=== PATIENT | female | born 1995 | race Two or more races ===

== ENCOUNTER 2024-10-04 22:16 | Emergency (ER) | payer OTHER ==
[~2024-10-04] VITALS: Ht 170.2 cm; Wt 90.7 kg
[2024-10-05 00:09] LABS: BASO % 0.5 % (0.1-1.2); EOS # 0.32 (0.04-0.54); EOS % 2.3 % (0.7-7.0); LYMPH # 2.28 (1.18-3.74); LYMPH % 16.6 % (19.3-53.1); MEAN PLATELET VOLUME 9.20 fl (9.4-12.4); MONO # 1.39 (0.24-0.82); MONO % 10.1 % (4.7-12.5); NEUT # 9.65 (1.56-6.13); NEUT % 70.1 % (34.0-71.1); RED CELL DISTRIBUTION WIDTH 13.2 % (11.6-14.4)
[2024-10-05 00:35] LABS: COVID-19 AG NEGATIVE (NEGATIVE)
[2024-10-05] MEDS ORDERED: ORASEP SPRAY30 ML MM (01:27)
[2024-10-05] MEDS ORDERED: ZITHROMAX500 MG PO (01:27)
== END 2024-10-05 01:35 ==
LOC: ER 23:23
PROVIDERS: General Practice
DX: J06.9 Acute upper respiratory infection, unspecified (principal); Z20.822 Contact with and (suspected) exposure to COVID-19

== ENCOUNTER 2024-11-01 18:21 | Emergency (ER) | payer OTHER ==
[~2024-11-01] VITALS: Ht 170.2 cm; Wt 99.8 kg
[~2024-11-01 18:21] MED LIST: ORASEP SPRAY30 ML MM; ZITHROMAX500 MG PO
[2024-11-01 18:25] VITALS: BP 107/75; O2SAT 100
[2024-11-01] MEDS ORDERED: KETOROLAC TROMETHAMINE 30 MG VIAL IV ONE (19:45)
[2024-11-01] MEDS ORDERED: CEFTRIAXONE SODIUM 1,000 MG VIAL IV ONE (19:45)
[2024-11-01 20:18] LABS: BASO % 0.8 % (0.1-1.2); EOS # 0.33 (0.04-0.54); EOS % 2.6 % (0.7-7.0); LYMPH # 2.25 (1.18-3.74); LYMPH % 17.9 % (19.3-53.1); MEAN PLATELET VOLUME 9.10 fl (9.4-12.4); MONO # 1.09 (0.24-0.82); MONO % 8.7 % (4.7-12.5); NEUT # 8.76 (1.56-6.13); NEUT % 69.6 % (34.0-71.1); RED CELL DISTRIBUTION WIDTH 13.7 % (11.6-14.4)
[2024-11-01 21:01] LABS: COVID-19 AG NEGATIVE (NEGATIVE)
[2024-11-01] MEDS ORDERED: AMOX-CLAV 875-1 EACH PO (21:59)
[2024-11-01] MEDS ORDERED: PEPCID AC20 MG PO (21:59)
== END 2024-11-01 22:13 ==
LOC: ER 21:06
PROVIDERS: General Practice
DX: J06.9 Acute upper respiratory infection, unspecified (principal); J00 Acute nasopharyngitis [common cold]; Z20.822 Contact with and (suspected) exposure to COVID-19